=== PATIENT | male | born 1955 | race Caucasian/White ===

== ENCOUNTER 2019-10-05 14:10 | Outpatient (CLI) | payer SELFPAY ==
--- NOTE | 2019-10-05 14:29 | XR_ITS ---
WS: [id number] XR shoulder RT min 2V* [id number] REASON FOR EXAM: R SHOULDER PAIN FINDINGS: The acromioclavicular joint and clavicle appear to be normal. The scapula body was normal. Elevation of the humerus in the glenoid humeral junction consistent with impingement changes. XR/XR shoulder RT min 2V* [id number] IMPRESSION: Impingement changes right shoulder
--- NOTE | 2019-10-05 14:29 | XR_ITS ---
WS: [id number] XR shoulder LT min 2V* [id number] REASON FOR EXAM: SHOULDER PAIN FINDINGS: The acromioclavicular joint was normal. The clavicle and scapula show no fractures. The glenoid humeral articulation normal. XR/XR shoulder LT min 2V* [id number] IMPRESSION: Negative left shoulder.
== END 2019-10-05 14:11 | disposition home or self-care (01) ==
LOC: RAD 14:22
PROVIDERS: Family Provider Family Medicine; PCP Family Medicine; Visit Provider Family Medicine
DX: M75.41 Impingement syndrome of right shoulder (principal); M25.511 Pain in right shoulder
CPT/HCPCS: 73030

== ENCOUNTER → 2022-01-29 16:33 | Outpatient (BNVA) | payer MEDICARE, SELFPAY | PROVIDERS: Family Provider Family Medicine; PCP Family Medicine; Visit Provider Family Medicine | DX: K92.2 Gastrointestinal hemorrhage, unspecified (principal); K74.60 Unspecified cirrhosis of liver | CPT/HCPCS: 80053; 85025 ==